=== PATIENT | male | born 1965 | race American Indian/Alaskan Native ===

== ENCOUNTER 2017-08-03 08:19 | Emergency (ER) | payer MEDICAID ==
[2017-08-03 09:28] LABS: Basophils % (Auto) 0.6 % (0.0-1.8); Eosinophils % (Auto) 1.9 % (0.0-4.3); Hematocrit 44.6 % (35.5-45.6); Hemoglobin 15.1 gm/dl (11.8-15.2); Mean Corpuscular HGB Conc 34 % (32-34); Mean Corpuscular Hemoglobin 34 pg (28-32); Mean Corpuscular Volume 101 fl (84-94); Platelet Count 206 K/mm3 (140-440); Red Blood Count 4.43 M/mm3 (3.65-5.03); Red Cell Distribution Width 13.5 % (13.2-15.2)
[2017-08-03 09:36] LABS: Bilirubin,Urine NEG (Negative); Blood,Urine NEG (Negative); Ketones,Urine NEG (Negative); Leukocyte Esterase,Urine NEG (Negative); Nitrite,Urine NEG (Negative); Protein,Urine <15 mg/dL mg/dL (Negative); RBC,Urine < 1.0 /HPF (0.0-6.0); Urobilinogen,Urine < 2.0 mg/dL (<2.0)
[2017-08-03 09:48] LABS: Alanine Aminotransferase 19 units/L (7-56); Albumin 4.4 g/dL (3.9-5); Albumin/Globulin Ratio 1.5 %; Alkaline Phosphatase 93 units/L (35-129); Anion Gap 16 mmol/L; BUN/Creatinine Ratio 17; Blood Urea Nitrogen 15 mg/dL (9-20); Carbon Dioxide 29 mmol/L (22-30); Chloride 101.7 mmol/L (98-107); Glucose 96 mg/dL (75-100); Lipase 44 units/L (13-60); Potassium 4.2 mmol/L (3.6-5.0); Sodium 142 mmol/L (137-145); Total Protein 7.3 g/dL (6.3-8.2)
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
[2017-08-04 13:45] LABS: Urine Drugs of Abuse Note Disclamer
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
--- NOTE | 2017-08-05 17:31 | Progress Note ---
Subjective - Reason for Consult Consult date: 08/05/17 Reason for consult: follow up - Chief Complaint Chief complaint: "Medicine makes me sleepy." 51 y.o. AA male presenting to [facility] for bizarre behavior. Today patient is calm, with a disorganized thought process. He has to be redirected. He stated that he hear voices, but he tries to ignore them because they tell him "negative things. " He denies SI/HI's and VH's. Mental Status Exam - Vital signs Last Vital Signs Temp 97.8 F 08/05/17 07:20 Pulse 59 L 08/05/17 07:20 Resp 18 08/05/17 07:20 BP 108/70 08/05/17 07:20 Pulse Ox 100 08/05/17 07:20 - Exam Narrative exam: MSE: Appearance: calm, cooperative Behavior: intense contact Speech: regular rate and tone Mood: "sleepy." Affect: constricted Thought Process: disorganized Thought Content: AH, denies SI/HI's and VH's Motor Activity: ambulatory Cognition: A/Ox3 Insight: poor Judgment: poor Assessment and Plan Impression: Unspecified Psychosis. Today patient is calm, with a disorganized thought process. Positive for marijuana. DDx: R/O Schizophrenia, R/O Bipolar DO, R/O Substance Induced Psychosis Recommendation/Plan: Continue 1013 with placement to inpatient psy services. Continue Zyprexa 5 mg PO HS for psychosis. Plan to increase but is complaining of drowsiness. Will hold off on increase. Discussed with patient possible metabolic side effects of Zyprexa.
[2017-08-05] MEDS ORDERED: NACL 0.9% 500 ML 0 ML ONE (20:58)
--- NOTE | 2017-08-06 18:23 | Progress Note ---
Subjective - Reason for Consult Consult date: 08/06/17 Reason for consult: follow up - Chief Complaint Chief complaint: "Water is coming out." 51 y.o. AA male presenting to [facility] for bizarre behavior. Today patient is calm, with a disorganized thought process. He talked about water coming out of him today. He denied this to be urine. He has to be redirected. He stated that he hear voices, but he tries to ignore them because they tell him "negative things. " He denies SI/HI's and VH's. He was calm and watching football today. Mental Status Exam - Vital signs Last Vital Signs Temp 98.2 F 08/06/17 08:15 Pulse 61 08/06/17 08:15 Resp 16 08/06/17 09:24 BP 132/78 08/06/17 08:15 Pulse Ox 99 08/06/17 09:24 - Exam Narrative exam: MSE: Appearance: calm, cooperative Behavior: intense contact Speech: regular rate and tone Mood: "ok" Affect: constricted Thought Process: disorganized Thought Content: AH, delusional, denies SI/HI's and VH's Motor Activity: ambulatory Cognition: A/Ox3 Insight: poor Judgment: poor Assessment and Plan Impression: Unspecified Psychosis. Today patient is calm and psychosis continues. Positive for marijuana. DDx: R/O Schizophrenia, R/O Bipolar DO, R/O Substance Induced Psychosis Recommendation/Plan: Continue 1013 with placement to inpatient psy services. Continue Zyprexa 5 mg PO HS for psychosis. Plan to increase but is complaining of drowsiness. Will hold off on increase. Discussed with patient possible metabolic side effects of Zyprexa.
--- NOTE | 2017-08-07 14:56 | Progress Note ---
Subjective - Reason for Consult Consult date: 08/07/17 Reason for consult: Psychiatry Follow-up - Chief Complaint Chief complaint: "I am still here" 51 y.o. AA male presenting to [facility] for bizarre behavior. Today patient is calm and cooperative during the assessment. He still think "water" is coming out his body. He denied this to be urine. He stated that he hear voices, but he tries to ignore them because they tell him "negative things." He denies SI/HI's, VH's , and being drowsy from his medication. Mental Status Exam - Vital signs Last Vital Signs Temp 98.1 F 08/07/17 09:32 Pulse 63 08/07/17 09:32 Resp 20 08/07/17 09:36 BP 123/70 08/07/17 09:32 Pulse Ox 100 08/07/17 09:36 - Exam Narrative exam: MSE: Appearance: calm, cooperative Behavior: regular eye contact Speech: regular rate and tone Mood: "okay" Affect: perseverance Thought Process: tangential Thought Content: denies SI/HI's and VH's, delusional Motor Activity: ambulatory Cognition: A/Ox3 Insight: poor Judgment: poor Assessment and Plan Impression: Unspecified Psychosis. Today patient is calm and psychosis continues. Positive for marijuana. DDx: R/O Schizophrenia, R/O Bipolar DO, R/O Substance Induced Psychosis Recommendation/Plan: Continue 1013 with placement to inpatient psy services. Continue Zyprexa 5 mg PO HS for psychosis. Discussed with patient possible metabolic side effects of Zyprexa.
[2017-08-08 08:47] VITALS: BP 161/96
--- NOTE | 2017-08-08 10:06 | Progress Note ---
Subjective - Reason for Consult Consult date: 08/08/17 Reason for consult: Psychiatry Follow-up - Chief Complaint Chief complaint: "Hello" 51 y.o. AA male presenting to [facility] for bizarre behavior. Today patient is calm and cooperative during the assessment. Patient is still delusional about water coming out his body. He had denied this to be urine. He stated that the voices he hear are still active. He denies SI/HI's and VH's. He denies any side effects of his medication. Mental Status Exam - Vital signs Last Vital Signs Temp 98.4 F 08/08/17 08:46 Pulse 83 08/08/17 08:46 Resp 16 08/08/17 08:46 BP 161/96 08/08/17 08:46 Pulse Ox 100 08/08/17 08:46 - Exam Narrative exam: MSE: Appearance: calm, cooperative Behavior: regular eye contact Speech: regular rate and tone Mood: "okay" Affect: congruent to mood Thought Process: tangential Thought Content: denies SI/HI's and VH's, delusional Motor Activity: ambulatory Cognition: A/Ox3 Insight: poor Judgment: poor Assessment and Plan Impression: Unspecified Psychosis. Today patient is calm and psychosis continues. Positive for marijuana. DDx: R/O Schizophrenia, R/O Bipolar DO, R/O Substance Induced Psychosis Recommendation/Plan: Continue 1013 with placement to inpatient psy services. Modify Zyprexa to 10 mg PO HS for psychosis. Discussed with patient possible metabolic side effects of Zyprexa.
== END 2017-08-08 21:30 | disposition other institution (70) ==
LOC: ED 08:19 → EEVIPCON 08:19 → ED 08-08 21:30
DX: F22 Delusional disorders (principal); F20.0 Paranoid schizophrenia; R35.0 Frequency of micturition; F17.200 Nicotine dependence, unspecified, uncomplicated; F12.10 Cannabis abuse, uncomplicated
CPT/HCPCS: 36415; 80053; 80307; 81001; 83690; 84443; 85025; 99285; G0480; 80320; J7040